=== PATIENT | male | born 1995 | race Two or more races ===

== ENCOUNTER 2024-04-29 20:30 | Emergency (ER) | payer OTHER ==
[~2024-04-29] VITALS: Ht 190.5 cm; Wt 120.5 kg
[2024-04-29 21:15] LABS: Basophils # (auto) 0.1 10 ^3/uL (0-0.2); Basophils % (auto) 0.7 % (0.0-2.0); Eosinophils # (auto) 0.1 10 ^3/uL (0-0.8); Eosinophils % (auto) 1.3 % (0.0-7.0); Hematocrit 42.2 % (41.0-53.0); Hemoglobin 13.9 g/dL (13.5-17.5); Lymphocytes # (auto) 3.7 10 ^3/uL (0.4-5.4); Lymphocytes % (auto) 34.5 % (10.0-50.0); Mean Corpuscular Hemoglobin 29.4 pg (28.0-32.0); Mean Corpuscular Hgb Conc. 32.9 g/dL (32.0-36.0); Mean Corpuscular Volume 89.4 fL (80.0-100.0); Monocytes # (auto) 0.7 10 ^3/uL (0-1.3); Monocytes % (auto) 6.6 % (0.0-12.0); Neutrophils # (auto) 6.2 10 ^3/uL (1.6-8.6); Neutrophils % (auto) 56.9 % (37.0-80.0); Red Blood Cells 4.72 10^6/uL (4.5-5.90); Red Cell Distribution Width 14.5 % (11.8-14.3); White Blood Cell 10.9 10^3/uL (4.4-10.8)
[2024-04-29 21:23] LABS: Alanine Aminotransferase 35 U/L (7-40); Albumin 4.4 g/dL (3.2-4.8); Alkaline Phosphatase 66 U/L (46-116); Anion Gap 7 (5-15); Aspartate Aminotransferase 34 U/L (13-40); BUN/Creatinine Ratio 13.2 (10.0-20.0); Blood Urea Nitrogen 12 mg/dL (9-23); Calcium 9.7 mg/dL (8.7-10.4); Carbon Dioxide 24 mmol/L (20-30); Chloride 109 mmol/L (98-107); Glucose 90 mg/dL (74-106); Magnesium 2.1 mg/dL (1.6-2.6); Potassium 3.8 mmol/L (3.5-5.1); Sodium 140 mmol/L (136-145)
[2024-04-29 21:24] LABS: Bilirubin, Total 0.9 mg/dL (0.2-1.0); Total Protein 6.8 g/dL (5.7-8.2)
[2024-04-29 21:28] LABS: INR 1.04 (0.9-1.15); Partial Thromboplastin Time 29.1 SEC (24.5-34.5)
[2024-04-29] MEDS: ALBUTEROL SULF 2.5 MG/0.5ML(0.5%) NEB SOLN NEB ONE (21:46)
[2024-04-29] MEDS: MAALOX PLUS or MAALOX 30 ML PO ONE (22:50)
[2024-04-29 22:54] VITALS: PULSE 103; RESP 16; O2SAT 100
[2024-04-29] MEDS ORDERED: ALBUAER3 IN (23:20)
[2024-04-29] MEDS ORDERED: PRED20TA2 PO (23:20)
[2024-04-29 23:58] VITALS: BP 153/70; PULSE 105; RESP 18; TEMP 98.5; O2SAT 98
== END 2024-04-30 | disposition home or self-care (01) ==
LOC: ER 20:30
DX: J40 Bronchitis, not specified as acute or chronic (principal); R07.2 Precordial pain; F17.290 Nicotine dependence, other tobacco product, uncomplicated
CPT/HCPCS: 36415; 71045; 80053; 83735; 83880; 84484; 85025; 85610; 85730; 93005; 94640